=== PATIENT | male | born 1960 | race Hispanic/Latino ===

== ENCOUNTER 2017-12-02 15:50 | Inpatient (IN) | payer SELFPAY ==
[~2017-12-02 15:50] MED LIST: ISOVUE-370 76%-LOCM 1 ML ONE
[2017-12-02] MEDS ORDERED: Ondansetron HCl/PF 4 MG/2 ML Vial ONE (16:20)
[2017-12-02] MEDS ORDERED: Morphine 4 MG/ML VIAL ONE (16:20)
[2017-12-02 16:26] LABS: #Basophils 0.1 thou/uL (0.0-0.2); #Eosinphils 0.1 thou/uL (0.0-0.7); #Lymphocytes 2.5 thou/uL (1.20-3.40); #Neutrophils 3.1 thou/uL (1.40-6.50); %Basophils 1.3 % (0.0-1.0); %Eosinophils 2.2 % (0.0-10.0); %Monocytes 14.3 % (0.0-10.0); %Neutrophils 45.3 % (42.0-75.0); Hemoglobin 13.2 g/dL (14.0-18.0); Mean Corpuscular HGB CONC 35.1 g/dL (32.0-36.0); Mean Corpuscular Hemoglobin 35.1 pg (27.0-31.0); Mean Platelet Volume 7.1 fL (7.4-10.4); Platelet Count 203 thou/uL (130-400); RBC Distribution Width 11.3 % (11.5-14.5); Red Blood Cell (RBC) Count 3.76 mill/uL (4.70-6.10); White Blood Cell (WBC) Count 6.8 thou/uL (4.8-10.8)
[2017-12-02 16:46] LABS: ALT (SGPT) 130 U/L (8-55); AST (SGOT) 181 U/L (5-34); Albumin 4.4 g/dL (3.5-5.0); Alkaline Phosphatase 58 U/L (40-150); Anion Gap 15 mmol/L (10-20); BUN (Urea Nitrogen) 9 mg/dL (8.4-25.7); Bilirubin, Total 0.8 mg/dL (0.2-1.2); Calc. Creatinine Clearance 0 mL/min (70-130); Calcium 9.6 mg/dL (7.8-10.44); Carbon Dioxide 22 mmol/L (22-29); Chloride 100 mmol/L (98-107); Estimated GFR-MDRD Greater than 90; Globulin 3.6 g/dL (2.4-3.5); Glucose 119 mg/dL (70-105); Lipase 24 U/L (8-78); Potassium 3.4 mmol/L (3.5-5.1); Sodium 134 mmol/L (136-145)
[2017-12-02] MEDS ORDERED: HYDROmorphone 0.5 MG/0.5 ML SYRINGE ONE (17:03)
--- NOTE | 2017-12-02 18:05 | CT ---
CT ABDOMEN AND PELVIS WITH IV CONTRAST 12/02/17 HISTORY: Lower abdominal pain. FINDINGS: The lung bases are clear. The liver demonstrates decreased attenuation consistent with fatty infiltra tion. There is a 3.3 cm cyst in the liver close to the gallbladder fossa. The spleen pancreas, and ad renal glands are normal. There are cysts in the kidneys. No calcified gallstones are seen. A normal appearing appendix is present. There is colonic diverticulosis. There is a circumaortic left renal vein. Vascular calcifications are present without evidence of aneurysmal dilatation of the abd ominal aorta. No free air or free fluid is seen in the abdomen or pelvis. There are mild degenerative changes in the spine. There is a large right inguinoscrotal hernia with loops of dilated small bowel and edema of the mesen teric/omental fat. IMPRESSION: 1. Small bowel loop containing right inguinoscrotal hernia. Possibility of strangulation cannot be excluded. 2. Fatty liver. 3. Hepatic cyst. 4. Renal cysts. 5. Colonic diverticulosis. POS: [facility]
[2017-12-02] MEDS ORDERED: Morphine 4 MG/ML Carpuject IVP PRN (20:45)
[2017-12-02] MEDS ORDERED: hydrALAZINE 20 MG/ML VIAL SLOW IVP PRN (20:45)
[2017-12-02] MEDS ORDERED: Dextrose 50% Abboject 50 ML SYRINGE SLOW IVP PRN (20:45)
[2017-12-02] MEDS ORDERED: Ondansetron ODT 4 MG TAB PO PRN (20:45)
[2017-12-02] MEDS ORDERED: Ondansetron HCl/PF 4 MG/2 ML Vial IVP PRN (20:45)
[2017-12-02] MEDS ORDERED: Dextrose 5% in Water 1,000 ML IV PRN (20:45)
[2017-12-02] MEDS ORDERED: Lorazepam 2 MG/ML VIAL SLOW IVP PRN (20:45)
[2017-12-02] MEDS ORDERED: Ketorolac Tromethamine 30 MG/ML VIAL IVP PRN (20:51)
[2017-12-02] MEDS ORDERED: CEFAZOLIN/Water 2 GM/20 ML SYRINGE SLOW IVP SCH (21:00)
[2017-12-02 23:19] VITALS: BMI 10.5
[2017-12-02] MEDS: Enoxaparin Sodium 40 MG/0.4 ML SYRINGE SC SCH (23:52)
[2017-12-02] MEDS: Tamsulosin HCl 0.4 MG CAP PO SCH (23:52)
[2017-12-02] MEDS: Famotidine/PF 20 mg/2ml Vial SLOW IVP SCH (23:53)
--- NOTE | 2017-12-03 00:05 | HP ---
HISTORY OF PRESENT ILLNESS: Mr. Ap Atwood is a 57-year-old male who lives in [place], works in construction with heavy equipment, presents to the emergency room tonight. He had urinary retention, and DrMiriam has placed a Anne and voided 800 mL of urine relieving him of his abdominal pain. He complains of pain in his right scrotum. He has had a hernia for 8 years. It comes and goes. It se ems to be getting larger. He has been in the emergency room in [place] for several times when he is on job sites there and seen and recommend he see a physician about repairing his hernia. The CAT sca n of his abdomen and pelvis obtained does not reveal any small-bowel obstruction. His abdomen is not distended; however, I cannot reduce his hernia. It is not tender. It is 8:42 p.m. and plan is to a dmit him overnight, leave his Anne catheter in place, to repair his hernia right inguinal tomorrow w ith mesh as outpatient and discharged home. We will have Urology to see him in consultation. We danny l start him on Flomax. We will have Urology see him in the hospital and they can follow him as an ou tpatient. ALLERGIES: None. SOCIAL HISTORY: Tobacco none. Alcohol, six pack a day. MEDICATIONS: None routinely. PAST SURGICAL HISTORY: Partial thyroidectomy for malignancy. He states they were referred to [facility] for that procedure. PAST MEDICAL HISTORY: Noncontributory otherwise. Patient does report nocturia. He denies decreased force of stream. He has never seen urologist before. PHYSICAL EXAMINATION: VITAL SIGNS: 126/73, 84, 18, 100 degrees. HEENT: Unremarkable. LUNGS: Clear to auscultation. CARDIAC: Regular rate and rhythm without murmur or gallop. ABDOMEN: Soft, nontender. No masses. EXTREMITIES: Unremarkable. GENITOURINARY: Left groin normal. Testicles normal. Right inguinal hernia, I can partially reduce this, but not completely. It is into his scrotum. LABORATORY DATA: White count 6, hemoglobin 13. Basic metabolic profile is essentially unremarkable. AST 181, ALT 130. ASSESSMENT AND PLAN: 1. Right inguinal hernia, incarcerated. There is no evidence of bowel obstruction and [facility] and repair tomorrow with mesh. Risks of infection, bleeding, reoperation explained. He consents. 2. Urinary retention. Urology consultation. 3. Alcohol abuse.
[2017-12-03] MEDS: NS 0.9% w/ 20 MEQ KCL 1,000 ML/1,000 ML BAG IV SCH ×4 (00:48→22:56)
[2017-12-03] MEDS: Acetaminophen 1,000 MG in Premix Bag 1 BAG IVPB PRN ×3 (00:53→17:31)
[2017-12-03 04:17] LABS: INR-International Normal Ratio 1.2; Prothrombin Time 14.9 SEC (12.0-14.7)
[2017-12-03 04:24] LABS: Anion Gap 12 mmol/L (10-20); BUN (Urea Nitrogen) 9 mg/dL (8.4-25.7); Calc. Creatinine Clearance 43 mL/min (70-130); Calcium 8.7 mg/dL (7.8-10.44); Carbon Dioxide 25 mmol/L (22-29); Chloride 103 mmol/L (98-107); Estimated GFR-MDRD Greater than 90; Glucose 105 mg/dL (70-105); Sodium 136 mmol/L (136-145)
[2017-12-03] MEDS: Famotidine/PF 20 mg/2ml Vial SLOW IVP SCH ×2 (08:47→22:51)
[2017-12-03] MEDS ORDERED: Multivitamins, Adult 10 ML, Folic Acid 1 MG, Thiamine HCl 100 MG in Dextrose 5 %-0.45 %... IV SCH ×4 (09:00)
--- NOTE | 2017-12-03 12:53 | PRG ---
DATE OF SERVICE: 12/03/2017 SUBJECTIVE: Jaylin Atwood is doing very well today. He has not had any nausea or vomiting. He tobin s not had any pain. Anne catheter is in place, it was relieved him of his abdominal pain. The elidia ent has chronically incarcerated right inguinal hernia for the past eight years. He has been seen in multiple emergency rooms and told to follow up with a surgeon as an outpatient. He has not due to f inancial problems. OBJECTIVE: LUNGS: Clear to auscultation. CARDIAC: Regular rate and rhythm without murmur or gallop. ABDOMEN: Soft. Hernia in place and nontender. ASSESSMENT AND PLAN: Chronically incarcerated right inguinal hernia. Plan to repair with mesh tomkavon betts, Monday. Risks and benefits were explained and he consents. We will allow him to have full liqu ids today. We will arrange Urology consultation for outpatient followup and plan discharge home with a Anne. Teach patient Anne care.
--- NOTE | 2017-12-03 18:41 | CON ---
DATE OF CONSULTATION: 12/03/2017 REASON FOR CONSULTATION: Urinary retention. HISTORY: Mr. Atwood is a 57-year-old gentleman who presented to the hospital on 12/02/2017, with abd ominal pain. He had a Anne catheter placed and his bladder was noted to be distended. His pain res olved after drainage of the bladder. He also has a right inguinal hernia and he is being admitted fo r treatment of the right inguinal hernia. With regard to his urologic symptoms, he states that he tobin s double voiding and nocturia 2-3 times per night. Denies any pain on urination. Denies any hematur ia. There is no prior urologic history. PAST MEDICAL HISTORY: Thyroid cancer, status post partial thyroidectomy. He has diverticulosis. CHRONIC MEDICATIONS: None. ALLERGIES: No known drug allergies. SOCIAL HISTORY: Nonsmoker. Does drink alcohol on a regular basis. He works in construction. FAMILY HISTORY: Noncontributory. REVIEW OF SYSTEMS: Respiratory: No shortness of breath. Cardiovascular: No chest pain or palpitations. Gastrointestinal: Denies chronic constipation or diarrhea. Genitourinary: Please see history of present illness. PHYSICAL EXAMINATION: GENERAL: He is awake, alert, is in no distress. VITAL SIGNS: Blood pressure 130/82, pulse 82, respiratory rate 18. HEENT: Normocephalic, atraumatic. NECK: Supple without masses. CHEST: Clear to auscultation. CARDIOVASCULAR: Regular rate and rhythm. ABDOMEN: Soft, nontender, no palpable masses noted. GENITOURINARY: Has a right inguinal hernia extending into the right scrotum. Penis is uncircumcised and no urethral meatal lesions. A Anne catheter is in place draining clear urine. RECTAL: Normal anus sphincter tone. Prostate 30 grams. No nodules or tenderness. Seminal vessels not palpable. IMPRESSION: Mr. Atwood has a right inguinal hernia and urinary retention. He has a Anne catheter i n place. He has temporary management of his retention. He has initiated Flomax therapy. We will co ntinue this therapy and the catheter will be removed as an outpatient for voiding trial. He was not in retention at the time of his presentation, but did have urinary symptoms consistent with BPH and a n elevated postvoid residual. PLAN: 1. Flomax. 2. Follow up for voiding trial.
[2017-12-03] MEDS: Enoxaparin Sodium 40 MG/0.4 ML SYRINGE SC SCH (22:06)
[2017-12-03] MEDS: Tamsulosin HCl 0.4 MG CAP PO SCH (22:07)
[2017-12-04 07:51] VITALS: BP 134/84; TEMP 98.6
[2017-12-04] MEDS: Famotidine/PF 20 mg/2ml Vial SLOW IVP SCH (08:29)
[2017-12-04] MEDS ORDERED: Levofloxacin 500 mg/D5W 100 ml Premix Bag ONE (10:35)
[2017-12-04] MEDS ORDERED: Bupivacaine/Epinephrine 0.25% 30 ML VIAL ONE (10:42)
[2017-12-04] MEDS ORDERED: Bupivacaine HCl 0.5%/Epinephrine 1:200,000/PF 30 ml Vial ONE (10:42)
[2017-12-04] MEDS ORDERED: Fentanyl 250 MCG/5 ML VIAL ONE ×2 (10:48→12:57)
[2017-12-04] MEDS ORDERED: Acetaminophen 500 MG TAB PO PRN (12:19)
[2017-12-04] MEDS ORDERED: traMADol HCl 50 MG TAB PO PRN ×2 (12:19)
[2017-12-04] MEDS ORDERED: Ibuprofen 600 MG TAB PO PRN (12:19)
--- NOTE | 2017-12-04 13:17 | OP ---
DATE OF PROCEDURE: 12/04/2017 PREOPERATIVE DIAGNOSES: 1. Sliding right inguinal hernia, incarcerated (present for more than 8 years). 2. Urinary retention preoperatively with Anne catheter in place to be sent home with and follow up with Urology at outpatient, on Flomax. POSTOPERATIVE DIAGNOSES: 1. Sliding right inguinal hernia, incarcerated (present for more than 8 years). 2. Urinary retention preoperatively with Anne catheter in place to be sent home with and follow up with Urology at outpatient, on Flomax. PROCEDURE PERFORMED: Right inguinal hernia repair with PHS mesh. SURGEON: Dr. Sherman Knight ANESTHESIA: General. Local 0.5% Marcaine with epinephrine, 30 mL, mixed with 2% Xylocaine, 10 mL to dominick volume mixture used. PROCEDURE IN DETAIL: The patient was taken to the operating room where under general anesthesia, serene in and abdomen, scrotum and prepared with ChloraPrep, draped in routine fashion. Local anesthetic in filtrated into the skin and subcutaneous tissue for ilioinguinal nerve block and incision made in the lower right groin and carried down through skin and subcutaneous tissue. External oblique incised i n the direction of fibers to the external ring. This was dissected free down to Poupart's ligament. A [place] drain placed around the cord structures. Cremasteric fibers taken down with the cautery. A large hernia sac dissected free down from the scrotum from the cord structures and opened. It was densely adherent to the preperitoneal fat and sliding hernia contents. It was dissected free. The sliding hernia was more through a direct defect and not the indirect. The large hernia sac was disse cted free and a pursestring suture of 0 Nurolon used to highly ligate this and amputate the hernia sa c into the stump of the hernia sac underside portion of the PHS mesh secured with 0 Nurolon and under lay portion of the mesh placed in the preperitoneal space and leveled and onlay portion placed in the floor of the canal. The mesh was then slid laterally to the cylindrical connecting ring creating a synthetic internal ring bringing the mesh around the cord structures and re-securing it laterally to Poupart's ligament and inferiorly, the mesh secured to Francisco Javier's ligament. Other securing sutures wer e placed. Once this was completed, the hernia sac was dissected free from the cord structures to all ow reduction and scrotal contents reduced in the scrotal sac. Good hemostasis noted. External obliq ue closed with continuous suture of 3-0 Monocryl, Camper's fascia with continuous suture of 3-0 Monoc ryl, skin with continuous subcuticular suture 4-0 Monocryl and local anesthetic mixture infiltrated i n the space of the inguinal canal and space above and below Camper's fascia, infiltrated in skin and subcutaneous tissue. Subcutaneous tissues approximated with 3-0 Monocryl, skin with subdermal 4-0 Mo nocryl and DermaGlue applied. Scrotal packing applied.
[2017-12-04] MEDS ORDERED: Promethazine HCl 25 MG/ML VIAL SLOW IVP PRN (13:36)
[2017-12-04] MEDS ORDERED: Promethazine HCl 25 MG/ML VIAL IM PRN (13:36)
[2017-12-04] MEDS ORDERED: Ondansetron HCl/PF 4 MG/2 ML Vial IVP PRN (13:36)
--- NOTE | 2017-12-04 14:58 | DIS ---
DATE OF ADMISSION: 12/02/2017 DATE OF DISCHARGE: 12/04/2017 DISCHARGE DIAGNOSES: 1. Urinary retention, 800 mL, Anne catheter placed in the emergency room. The patient sent home wi halle Palomares, seen by Urology, Dr. Hou that he follows up with him and Anne catheter removal and wo rkup. 2. Incarcerated right inguinal hernia. The patient has been seen in [place] on several occasions an d sent home and instructed to have this repaired. I could not reduce this even though he was not obs tructed. He was admitted and underwent repair. PROCEDURES THIS HOSPITALIZATION: 1. CT scan of abdomen and pelvis noting urinary retention and incarcerated right inguinal hernia. 2. Incarcerated inguinal hernia repair, 12/04/2017. Discharged home with Flomax 0.[address] Hou, Urology, called this in for the patient to pr s pharmacy. Ultram prescriptions given to him. He will take Tylenol, Motrin and use Ultram for nuzhat kthrough pain. Scrotal support ordered. Follow up in my office in 2-3 weeks. Diet and activity as tolerated. HISTORY: A 57-year-old male with a right inguinal hernia for 8 years, been seen in the emergency paty m in [place] on several occasions and instructed to follow up. He did not have any insurance. He di d not keep follow up. He presented to the emergency room this occasion with abdominal pain. CAT sca n revealed changes with urinary retention. Anne catheter placed, 800 mL residual. Anne catheter l eft in place by Dr. Hou saw him and arranged outpatient urological followup and he will be discha rged home with followup. The patient underwent hernia repair as described and follow up in my office in 2-3 weeks. Diet and activity as tolerated. No lifting more than 25 pounds for 2 weeks postopera tively.
[2017-12-05] MEDS ORDERED: Polyethylene Glycol 3350 17 GM Packet PO SCH (09:00)
== END 2017-12-04 19:05 | disposition home or self-care (01) | DRG 352 ==
LOC: EDBD 15:50 → ERS 15:50 → SURG A 22:58
PROVIDERS: ADMIT Specialist; ATTEND Specialist
PROC: 0YU50JZ Supplement Right Inguinal Region with Synthetic Substitute, Open Approach (ICD-10-PCS; principal; 2017-12-04)
DX: K40.30 Unilateral inguinal hernia, with obstruction, without gangrene, not specified as recurrent (principal); E89.0 Postprocedural hypothyroidism; R33.9 Retention of urine, unspecified; Z85.850 Personal history of malignant neoplasm of thyroid; F10.10 Alcohol abuse, uncomplicated
CPT/HCPCS: 36415; 51702; 74177; 80048; 80053; 83690; 85025; 85610; 87086; 93005; 96361; 96374; 96375; C1781; J0131; J0670; J1170; J1650; J1885; J1956; J2270; J2405; J3010; J3411; J7042; S0028